=== PATIENT | female | born 1960 | race Hispanic/Latino ===

== ENCOUNTER 2021-09-06 11:03 | Inpatient (IN) | payer OTHER ==
[~2021-09-06] VITALS: Ht 157.5 cm; Wt 53.1 kg
[2021-09-06 11:23] LABS: BASOPHILS % (AUTO) 0.6 % (0.0-5.0); EOSINOPHILS % (AUTO) 1.5 % (0.0-8.0); HEMATOCRIT 37.8 % (36-48); MEAN CORPUSCULAR HEMOGLOBIN 30.1 pg (27.0-33.0); MEAN CORPUSCULAR HGB CONC 32.5 g/dL (32.0-36.0); MEAN CORPUSCULAR VOLUME 92.4 fL (79-99); MONOCYTES % (AUTO) 8.4 % (3.0-13.0); NEUTROPHILS % (AUTO) 55.2 % (40.0-77.0); PLATELET COUNT (AUTO) 279 K/uL (130-400); RED BLOOD CELL COUNT(AUTO) 4.09 MIL/uL (4.00-5.50); RED CELL DISTRIBUTION WIDTH 13.2 % (11.0-15.5); WHITE BLOOD COUNT (AUTO) 6.7 K/uL (4.8-10.8)
[2021-09-06 11:31] LABS: CREATININE 0.7 mg/dL (0.5-1.5); POTASSIUM 4.3 mmol/L (3.5-5.1)
[2021-09-06 11:41] LABS: ALBUMIN 4.1 g/dL (3.5-5.0); BILIRUBIN,TOTAL 0.5 mg/dL (0.2-1.0); TOTAL PROTEIN, SERUM 7.7 g/dL (6.0-8.3)
[2021-09-06] MEDS ORDERED: ONDANSETRON 4MG INJ IVP SCH (12:00)
[2021-09-06] MEDS ORDERED: 0.9%NACL 1000ML 1,000 ML IV SCH (12:00)
[2021-09-06] MEDS ORDERED: MORPHINE 4 MG SYG IVP SCH (12:00)
[2021-09-06] MEDS ORDERED: ZOSYN 3.375GM+NS 50ML 3.38 GM in 0.9%NACL 50ML 50 ML IV SCH ×2 (14:00→15:30)
[2021-09-06] MEDS: ZOSYN 3.375GM +NS 50ML IV SCH ×2 (14:35→14:45)
[2021-09-06] MEDS ORDERED: 0.9%NACL 100ML 100 ML ONE (14:37)
[2021-09-06] MEDS ORDERED: 0.9%NACL 50ML 50 ML IV SCH (15:00)
[2021-09-06] MEDS ORDERED: LACTULOSE 20 GM/30 ML UDCUP PO ONE (15:30)
[2021-09-06] MEDS: 0.9%NACL 1000ML 1,000 ML IV SCH ×2 (15:30→23:30)
[2021-09-06 15:37] LABS: HEMOGLOBIN A1C 5.6 % (4.0-6.0)
[2021-09-06] MEDS: 0.9%NACL 50ML 50 ML IV SCH (19:54)
[2021-09-06 21:21] LABS: APPEARANCE,URINE Clear (CLEAR); BILIRUBIN,URINE Negative (NEGATIVE); COLOR,URINE Yellow (YELLOW); GLUCOSE, URINE (UA) Negative (NEGATIVE); KETONES,URINE Trace mg/dL (NEGATIVE); LEUKOCYTE ESTERASE ,URINE Moderate (NEGATIVE); NITRATE,URINE Negative (NEGATIVE); OCCULT BLOOD,URINE Negative (NEGATIVE); PH,URINE 5.5 (5.0-8.0); PROTEIN,URINE Negative (NEGATIVE); UROBILINOGEN,URINE 0.2 mg/dL (0.2-1.0)
[2021-09-06 22:04] LABS: BACTERIA,URINE Few /HPF (None Seen); RBC,URINE 0-1 /HPF (0-1); SQUAMOUS EPITHELIAL CELL,UR 0-2 /HPF (0-2)
[2021-09-06] MEDS: MORPHINE 2 MG SYG IV PRN (22:13)
[2021-09-06 23:10] VITALS: BP 128/61
[2021-09-07 03:58] VITALS: BP 99/64
[2021-09-07] MEDS: ZOSYN 3.375GM +NS 50ML IV SCH ×3 (05:44→20:33)
[2021-09-07] MEDS: 0.9%NACL 50ML 50 ML IV SCH ×3 (05:44→20:34)
[2021-09-07 06:03] LABS: BASOPHILS % (AUTO) 0.5 % (0.0-5.0); EOSINOPHILS % (AUTO) 2.1 % (0.0-8.0); HEMATOCRIT 33.5 % (36-48); LYMPHOCYTES % (AUTO) 25.3 % (21.0-51.0); MEAN CORPUSCULAR HEMOGLOBIN 29.6 pg (27.0-33.0); MEAN CORPUSCULAR HGB CONC 31.9 g/dL (32.0-36.0); MEAN CORPUSCULAR VOLUME 92.5 fL (79-99); MONOCYTES % (AUTO) 11.1 % (3.0-13.0); NEUTROPHILS % (AUTO) 60.5 % (40.0-77.0); PLATELET COUNT (AUTO) 237 K/uL (130-400); RED BLOOD CELL COUNT(AUTO) 3.62 MIL/uL (4.00-5.50); RED CELL DISTRIBUTION WIDTH 13.4 % (11.0-15.5); WHITE BLOOD COUNT (AUTO) 5.7 K/uL (4.8-10.8)
[2021-09-07 06:18] LABS: ALBUMIN 3.2 g/dL (3.5-5.0); BILIRUBIN,TOTAL 0.5 mg/dL (0.2-1.0); CREATININE 0.6 mg/dL (0.5-1.5); POTASSIUM 3.8 mmol/L (3.5-5.1); TOTAL PROTEIN, SERUM 6.2 g/dL (6.0-8.3)
[2021-09-07] MEDS: 0.9%NACL 1000ML 1,000 ML IV SCH ×3 (06:42→20:34)
[2021-09-07] MEDS ORDERED: LEVO-172 PO (06:51)
[2021-09-07 07:20] VITALS: BP 109/70
[2021-09-07] MEDS: ENOXAPARIN SODIUM 30 MG/0.3 ML SQ SCH (09:34)
[2021-09-07 11:20] VITALS: BP 106/61
[2021-09-07] MEDS: ACETAMINOPHEN 325 MG TAB PO PRN ×2 (12:37→18:24)
[2021-09-07 15:20] VITALS: BP 95/56
[2021-09-07 20:00] VITALS: BP 88/54
[2021-09-08] VITALS: BP 107/59
[2021-09-08] MEDS: MORPHINE 2 MG SYG IV PRN (00:46)
[2021-09-08 04:00] VITALS: BP 100/61
[2021-09-08 04:49] LABS: HEMATOCRIT 34.4 % (36-48); MEAN CORPUSCULAR HEMOGLOBIN 29.8 pg (27.0-33.0); MEAN CORPUSCULAR HGB CONC 30.8 g/dL (32.0-36.0); MEAN CORPUSCULAR VOLUME 96.6 fL (79-99); PLATELET COUNT (AUTO) 239 K/uL (130-400); RED BLOOD CELL COUNT(AUTO) 3.56 MIL/uL (4.00-5.50); RED CELL DISTRIBUTION WIDTH 13.1 % (11.0-15.5); WHITE BLOOD COUNT (AUTO) 5.3 K/uL (4.8-10.8)
[2021-09-08 05:10] LABS: CREATININE 0.8 mg/dL (0.5-1.5); POTASSIUM 3.9 mmol/L (3.5-5.1)
[2021-09-08] MEDS ORDERED: GLUCAGON 1MG KIT 1 MG ML IM PRN (05:30)
[2021-09-08] MEDS ORDERED: DEXTROSE 50%-WATER 50 ML DISP.SYRIN IV PRN (05:30)
[2021-09-08] MEDS: 0.9%NACL 50ML 50 ML IV SCH ×3 (05:57→22:09)
[2021-09-08] MEDS: ZOSYN 3.375GM +NS 50ML IV SCH ×3 (05:57→22:08)
[2021-09-08] MEDS: 0.9%NACL 1000ML 1,000 ML IV SCH ×3 (06:36→23:30)
[2021-09-08 07:25] VITALS: BP 125/62
[2021-09-08] MEDS: ENOXAPARIN SODIUM 30 MG/0.3 ML SQ SCH (08:13)
[2021-09-08] MEDS: ACETAMINOPHEN 325 MG TAB PO PRN (11:11)
[2021-09-08 11:25] VITALS: BP 94/53
[2021-09-08] MEDS ORDERED: IOHEXOL-350 75 ML VIAL IV ONE (12:48)
[2021-09-08 15:25] VITALS: BP 101/61
[2021-09-08 20:00] VITALS: BP 102/58
[2021-09-09] VITALS: BP 96/53
[2021-09-09 04:00] VITALS: BP 107/61
[2021-09-09] MEDS: ACETAMINOPHEN 325 MG TAB PO PRN (05:07)
[2021-09-09] MEDS: 0.9%NACL 50ML 50 ML IV SCH (05:07)
[2021-09-09] MEDS: ZOSYN 3.375GM +NS 50ML IV SCH (05:07)
[2021-09-09 05:38] LABS: ALBUMIN 3.3 g/dL (3.5-5.0); BILIRUBIN,TOTAL 0.6 mg/dL (0.2-1.0); CREATININE 0.8 mg/dL (0.5-1.5); POTASSIUM 3.9 mmol/L (3.5-5.1); TOTAL PROTEIN, SERUM 6.6 g/dL (6.0-8.3)
[2021-09-09] MEDS: 0.9%NACL 1000ML 1,000 ML IV SCH (07:30)
[2021-09-09 08:00] VITALS: BP 101/57
[2021-09-09] MEDS: ENOXAPARIN SODIUM 30 MG/0.3 ML SQ SCH (09:57)
[2021-09-09] MEDS ORDERED: LEVO750T46 PO (11:46)
[2021-09-09] MEDS ORDERED: METR500T PO (11:46)
== END 2021-09-09 12:30 | disposition home or self-care (01) | DRG 392 ==
LOC: EDH 11:03 → OBSVTOIN 14:05 → EDHIP 14:05 → INTOOBSV 14:05 → 3DH 23:16
PROVIDERS: ADMIT Hospitalist; ATTEND Hospitalist
DX: K57.32 Diverticulitis of large intestine without perforation or abscess without bleeding (principal); N39.0 Urinary tract infection, site not specified; E03.9 Hypothyroidism, unspecified; Z20.822 Contact with and (suspected) exposure to COVID-19
CPT/HCPCS: 36415; 71045; 74176; 74177; 80048; 80053; 81001; 82550; 82948; 83036; 83690; 83874; 84484; 85025; 85027; 85651; 87088; 87635; 87804; 93005; G0378; J1650; J2270; J2405; J2543; J7030; J7070; Q9967

== ENCOUNTER 2024-12-22 08:20 | Emergency (ER) | payer BC, OTHER ==
[~2024-12-22] VITALS: Ht 157.5 cm; Wt 51.3 kg
[~2024-12-22 08:20] MED LIST: LEVO-172 PO
--- NOTE | 2024-12-22 08:35 | ERN ---
General Chief Complaint: Constipation Stated Complaint: CONSTIPATION Time Seen by MD: 08:24 History of Present Illness Initial Comments 64-year-old female who presents for constipation x3 days. Patient reports she had a hemorrhoidectomy a few years ago, since then she has dealt with on and off constipation. She reports she was she takes prune juice regularly and stays hydrated. She tried some magnesium citrate yesterday. She reports she was passing gas in his had a few loose stools but feels like there was a ball near the rectum that she is unable to pass. She is quite uncomfortable. She denies any vomiting, fevers, dysuria or any other systemic symptom. Denies surgical history other than the hemorrhoidectomy Medical history: Hypothyroidism Allergies: Coded Allergies: No Known Allergies (Unverified Allergy, Unknown, 09/06/21) Home Meds Active Scripts Polyethylene Glycol 3350 (Miralax) 17 Gram Powd.pack, 1 PACKET PO BID PRN for constipation, #30 PACKET 0 Refills dissolve in water Prov:RUPESH MORENO DO 12/22/24 Reported Medications Levothyroxine Sodium (Euthyrox) 100 Mcg Tablet, 100 MCG PO ACBKFST, TAB 09/07/21 Past Medical History Past Medical History: Constipation, COPD, Hypothyroid Medical History Other: DYSPNEA ON EXERTION, THYROID Past Surgical History: Other Surgical History Other: HEMORRHOIDECTOMY Family History Family History: Negative Social History Social History: Negative Female( History) History: Not Applicable ROS Dictation CONSTITUTIONAL: No chills, no fever, no weakness, no diaphoresis, no malaise. HEAD/FACE: No signs of trauma. EENT: No eye pain, no blurred vision, no tearing, no double vision, no ear pain, no ear discharge, no nose pain, no nasal congestion, no throat pain, no throat swelling, no mouth pain. RESPIRATORY: No cough, no orthopnea, no SOB, no stridor, no wheezing. CARDIOVASCULAR: No chest pain, no edema, no palpitations, no syncope. GASTROINTESTINAL/ABDOMINAL: Constipation and rectal pain GENITOURINARY: No abnormal discharge, no dysuria, no frequent urination, no hematuria. No complaints of pain in the genitals. MUSCULOSKELETAL: No back pain, no gout, no joint pain, no joint swelling, no muscle pain, no muscle stiffness, no neck pain. INTEGUMENTARY: No change in color, no change in hair/nails, no dryness, no lesion, no lumps, no rash. NEUROLOGICAL/PSYCH: No anxiety, not depressed, no emotional problem, no headache, no numbness, no pre-existing deficit, no history of seizures, no tremors, no weakness. HEMATOLOGIC/LYMPHATIC: Not anemic, no history of blood clots, no apparent bleeding, no bruising, glands not swollen. All Systems Negative, Except as Noted. Physical Exam Physical Exam Dictation VITAL SIGNS: Reviewed. GENERAL APPEARANCE: Alert, oriented x3, moderate distress due to the pain HEAD AND FACE: Non-traumatic. EYES: PERRL, pink conjunctivas, eyelid no trauma, anterior chamber clear. EARS: Pinnas intact and no signs of trauma or erythema. Ear canals clear and no discharge. TMs no erythema. NOSE: No discharge, no bleeding. OROPHARYNX: Mouth normal, teeth no caries, tongue pink. Pharynx clear, no erythema. Tonsils no exudates, no abscesses noted. Mucous membrane moist. NECK: Supple, non-tender, no thyromegaly, no masses, no JVD, no bruits. BREAST: Deferred. CHEST: No tenderness, no crepitus, no paradoxical movement, no retractions. LUNGS: Clear, well-ventilated, symmetric, no rales, no wheezing, no rhonchi, no stridor, good breath sounds bilaterally. HEART: Regular rate, regular rhythm, no murmur, no gallops. VASCULAR: No peripheral edema. ABDOMEN: Soft, positive bowel sounds, nondistended, no guarding, nontender, no rebound, no masses no hepatomegaly, no splenomegaly, no Greenberg's sign, no hernias. RECTAL: Deferred. GENITAL: Deferred. NEUROLOGICAL: Normal speech, gross motor function intact, gross sensory fun ction intact. MUSCULOSKELETAL: Neck nontender, full range of motion, back nontender, full range of motion. EXTREMITIES: Nontender, full range of motion. SKIN: Color pink, dry, no turgor, no rash, no lacerations, no abrasions, no contusions. LYMPHATICS: Deferred. Results Laboratory and Microbiology Lab and Micro Result Laboratory Tests Test 12/22/24 08:40 White Blood Count 5.8 K/uL (4.8-10.8) Red Blood Count 4.62 MIL/uL (4.00-5.50) Hemoglobin 14.0 g/dL (12.0-16.0) Hematocrit 42.4 % (36-48) Mean Corpuscular Volume 91.8 fL (79-99) Mean Corpuscular Hemoglobin 30.3 pg (27.0-33.0) Mean Corpuscular Hemoglobin Concent 33.0 g/dL (32.0-36.0) Red Cell Distribution Width 13.1 % (11.0-15.5) Platelet Count 260 K/uL (130-400) Mean Platelet Volume 10.8 fL (7.5-10.5) H Immature Granulocyte % (Auto) 0.5 % (0-1) Neutrophils (%) (Auto) 63.5 % (40.0-77.0) Lymphocytes (%) (Auto) 25.0 % (21.0-51.0) Monocytes (%) (Auto) 7.2 % (3.0-13.0) Eosinophils (%) (Auto) 3.1 % (0.0-8.0) Basophils (%) (Auto) 0.7 % (0.0-5.0) Neutrophils # (Auto) 3.7 K/uL (1.8-7.7) Lymphocytes # (Auto) 1.5 K/uL (1.0-4.8) Monocytes # (Auto) 0.4 K/uL (0.1-1.0) Eosinophils # (Auto) 0.18 K/uL (0.00-0.70) Basophils # (Auto) 0.04 K/uL (0.00-0.20) Absolute Immature Granulocyte (auto 0.03 K/uL (0-1) Nucleated Red Blood Cells 0.0 % (0.0-0.19) Sodium Level 139 mmol/L (136-145) Potassium Level 3.8 mmol/L (3.5-5.1) Chloride Level 101 mmol/L (101-111) Carbon Dioxide Level 31 mmol/L (21-32) Blood Urea Nitrogen 19 mg/dL (7-18) H Creatinine 0.7 mg/dL (0.5-1.0) Glomerular Filtration Rate Calc 97 mL/min (>90) Random Glucose 104 mg/dL (70-105) Total Calcium 8.9 mg/dL (8.5-10.1) TAMIR SULLIVAN CC: Constipation Historian: Patient Comorbidities: History of constipation, hypothyroidism Limitations by social determinants of health: None Differential diagnosis: Bowel obstruction versus constipation. Surgical patholo gy, other. Signs: Mild hypertension otherwise stable and remained stable here in the ER. Labs (independently ordered & interpreted by me ): CBC is normal. Chemistries unremarkable. CT abdomen and pelvis (independently interpreted by me ): No obvious bowel obstruction. Constipation. CT read by the radiologist shows wall thickening & lesion in the liver. I told this to the patient and gave her a CT scan report. Treatment in the ER: Patient received 1 L of fluids IV. Received Fleet enema. I have performed a digital disimpaction. Some stool was removed. Re-evaluation: Patient had a small stool in the ER. Improved symptoms. plan: We will DC with a prescription for PEG, recommend PCP follow up for CT findings. CT ABDOMEN WITHOUT CONTRAST. CT PELVIS WITHOUT CONTRAST. INDICATION: Constipation or obstruction? TECHNIQUE: Routine transaxial imaging using 5 mm slice thickness through the abdomen and pelvis without the administration of IV contrast. Thin slice reconstructions are also provided. Coronal and sagittal reformatted images acquired for interpretation. CT was performed with one or more of the following dose reduction techniques: Automated exposure control, adjustment of the mA and/or kV according to patient size, or use of iterative reconstruction technique. COMPARISON: None FINDINGS: ON NONCONTRAST IMAGING: ABDOMEN: Heart size is normal. Visible lung bases are clear. No abnormal renal calcifications, hydronephrosis, perinephric inflammation, or proximal hydroureter detected. The liver is normal in size and smooth in contour without biliary duct dilation. 1.5 cm low attenuating lesion within the inferior right hepatic lobe. 5.2 cm mass within the superolateral right hepatic lobe, and smaller 1.5 cm low attenuating lesion near the same level. The spleen is normal in size and attenuation. The gallbladder appears normal. The pancreas appears normal without pancreatic duct dilation. The adrenal glands appear normal. No significant abdominal, retrocrural or retroperitoneal adenopathy noted. No evidence for intra-abdominal free air or organized fluid collection. No aortic aneurysmal dilation identified. PELVIS: No abnormal calcifications within the urinary bladder or distal ureters. No evidence for free air or organized pelvic fluid collection. No significant pelvic adenopathy detected. Moderate distal rectal wall thickening and moderate stool burden. Terminal ileum appears unremarkable. The appendix appears normal. Visible osseous structures are intact. IMPRESSION: Findings suggesting rectal malignancy and metastatic liver disease until proven otherwise. ED Course Orders Procedure Category Date Status Time Cbc With Differential LAB 12/22/24 Complete 08:32 Ct Abdomen/Pelvis W/O CT 12/22/24 Resulted Contrast 08:32 Basic Metabolic Panel LAB 12/22/24 Complete 08:32 Lactated Ringers PHA 12/22/24 Complete 1000ml (Lactated 09:00 Polyethylene Glycol PHA 12/22/24 Complete 3350 (Miralax 3350 1 10:00 Current Medications Medications (Trade) Dose Ordered Sig/Ti Route PRN Reason Start Time Stop Time Status Last Admin Dose Admin Lactated Ringer's 1,000 ml @ 0 mls/hr ONCE ONCE IV 12/22/24 09:00 12/22/24 09:01 DC 12/22/24 10:17 Polyethylene Glycol (MIRalax 3350 17 GM POWD.PACK) 17 gm ONCE ONCE PO 12/22/24 10:00 12/22/24 10:01 DC 12/22/24 10:17 Vital Signs Date Time Temp Pulse Resp B/P (MAP) Pulse Ox O2 Delivery O2 Flow Rate FiO2 12/22/24 08:46 98.1 75 16 148/72 98 Room Air* 0 21 12/22/24 08:22 97.5 80 18 150/76 97 Room Air DX & DISP Disposition: Discharge Departure Impression: Primary Impression: Constipation Additional Impressions: External hemorrhoid, Liver mass, Abnormal CT scan Condition: Stable Scripts Polyethylene Glycol 3350 (Miralax) 17 Gram Powd.pack 1 PACKET PO BID PRN for constipation, #30 PACKET 0 Refills dissolve in water Prov: RUPESH MORENO DO 12/22/24 Additional Instructions: Your symptoms are consistent with constipation. You received Fleet enemas and a manual decompression here in the ER. Your lab work (CBC, BMP) is unremarkable. I have prescribed MiraLax. Mixed one scoop with 8 oz of water. You can take this2-3 times per day as needed for constipation. Use until your bowel movements become regular. Drink plenty of liquids. Avoid dehydration. Increase fiber intake. Eat fruits, vegetables, and whole grains. Reduce constipating foods such as cheese, rice, and processed foods. Encourage daily physical activity to stimulate bowel movements. As we discussed, the CT scan of your abdomen and pelvis shows concerning findings around your liver and lower GI tract. It was very important that you follow up with your primary doctor regarding these findings. You likely need a GI consultation. You have been provided a copy of the CT scan report. Please return to the emergency department if you have any concerning symptoms such as severe abdominal pain, blood in the stool, persistent vomiting, or prolonged constipation after 48 hours. Referrals: FABI CARBONE MD (PCP) KELSY MORAN MD, RYAN E DO Dec 22, 2024 08:35
[2024-12-22 08:48] LABS: BASOPHILS # (AUTO) 0.04 K/uL (0.00-0.20); BASOPHILS % (AUTO) 0.7 % (0.0-5.0); EOSINOPHILS # (AUTO) 0.18 K/uL (0.00-0.70); EOSINOPHILS % (AUTO) 3.1 % (0.0-8.0); HEMATOCRIT 42.4 % (36-48); IMMATURE GRANULOCYTE ABSOLUTE 0.03 K/uL (0-1); LYMPHOCYTES # (AUTO) 1.5 K/uL (1.0-4.8); MEAN CORPUSCULAR HEMOGLOBIN 30.3 pg (27.0-33.0); MEAN CORPUSCULAR VOLUME 91.8 fL (79-99); MONOCYTES # (AUTO) 0.4 K/uL (0.1-1.0); MONOCYTES % (AUTO) 7.2 % (3.0-13.0); NEUTROPHILS # (AUTO) 3.7 K/uL (1.8-7.7); NEUTROPHILS % (AUTO) 63.5 % (40.0-77.0); PLATELET COUNT (AUTO) 260 K/uL (130-400); RED BLOOD CELL COUNT(AUTO) 4.62 MIL/uL (4.00-5.50); RED CELL DISTRIBUTION WIDTH 13.1 % (11.0-15.5); WHITE BLOOD COUNT (AUTO) 5.8 K/uL (4.8-10.8)
--- NOTE | 2024-12-22 09:08 | HMCIMG ---
CT ABDOMEN WITHOUT CONTRAST. CT PELVIS WITHOUT CONTRAST. INDICATION: Constipation or obstruction? TECHNIQUE: Routine transaxial imaging using 5 mm slice thickness through the abdomen and pelvis without the administration of IV contrast. Thin slice reconstructions are also provided. Coronal and sagittal reformatted images acquired for interpretation. CT was performed with one or more of the following dose reduction techniques: Automated exposure control, adjustment of the mA and/or kV according to patient size, or use of iterative reconstruction technique. COMPARISON: None FINDINGS: ON NONCONTRAST IMAGING: ABDOMEN: Heart size is normal. Visible lung bases are clear. No abnormal renal calcifications, hydronephrosis, perinephric inflammation, or proximal hydroureter detected. The liver is normal in size and smooth in contour without biliary duct dilation. 1.5 cm low attenuating lesion within the inferior right hepatic lobe. 5.2 cm mass within the superolateral right hepatic lobe, and smaller 1.5 cm low attenuating lesion near the same level. The spleen is normal in size and attenuation. The gallbladder appears normal. The pancreas appears normal without pancreatic duct dilation. The adrenal glands appear normal. No significant abdominal, retrocrural or retroperitoneal adenopathy noted. No evidence for intra-abdominal free air or organized fluid collection. No aortic aneurysmal dilation identified. PELVIS: No abnormal calcifications within the urinary bladder or distal ureters. No evidence for free air or organized pelvic fluid collection. No significant pelvic adenopathy detected. Moderate distal rectal wall thickening and moderate stool burden. Terminal ileum appears unremarkable. The appendix appears normal. Visible osseous structures are intact. IMPRESSION: Findings suggesting rectal malignancy and metastatic liver disease until proven otherwise.
[2024-12-22 09:11] LABS: CREATININE 0.7 mg/dL (0.5-1.0); POTASSIUM 3.8 mmol/L (3.5-5.1)
[2024-12-22] MEDS: LACTATED RINGERS 1000ML 1,000 ML IV ONE (10:17)
[2024-12-22] MEDS: polyETHYLene GLYCol 3350 17 GM POWD.PACK PO ONE (10:17)
[2024-12-22] MEDS ORDERED: POLY17PO4 PO (10:42)
--- NOTE | 2024-12-22 11:44 | NUR ---
ANDMINISTERED FLEET ENEMA-X2 PER MD REQUEST TO RELIEVE CONSTIPATION PT WAS ASBLES TO PRODUCE SMALL AMOUNT OF STOOL AND MD DIGITAL DISIMPACT TO FURTHER ASSIST
[2024-12-22 11:47] VITALS: BP 148/72; PULSE 70; RESP 18; TEMP 98.3; O2SAT 98
== END 2024-12-22 11:55 | disposition home or self-care (01) ==
LOC: EDH 08:20
DX: K59.00 Constipation, unspecified (principal); K64.4 Residual hemorrhoidal skin tags; R16.0 Hepatomegaly, not elsewhere classified; E03.9 Hypothyroidism, unspecified; J44.9 Chronic obstructive pulmonary disease, unspecified; Z79.899 Other long term (current) drug therapy; Z98.890 Other specified postprocedural states
CPT/HCPCS: 99284; 74176; 96360; 80048; 85025; 36415; J7120